=== PATIENT | male | born 1970 | race Caucasian/White ===

== ENCOUNTER → 2018-08-05 | Outpatient (CLI) | payer OTHER | LOC: M.ULTRA 07-11 08:00 | DX: R79.89 Other specified abnormal findings of blood chemistry (principal) ==

== ENCOUNTER → 2018-08-30 | Outpatient (CLI) | payer OTHER | LOC: M.CT 08-29 09:00 | DX: R93.89 Abnormal findings on diagnostic imaging of other specified body structures (principal) ==